=== PATIENT | female | born 1960 | race Caucasian/White ===

== ENCOUNTER 2019-11-18 11:00 | Outpatient (REF) | payer MEDICARE, MEDICAID, SELFPAY ==
--- NOTE | 2019-11-18 | XR_ITS ---
EXAMINATION: XR CHEST CLINICAL INFORMATION: Simple chronic bronchitis COMPARISON: None TECHNIQUE: 2 views of the chest were obtained. FINDINGS: The cardiac and mediastinal contours are normal. The lungs are clear. There is no pleural effusion or pneumothorax. There are degenerative changes of the thoracic spine. There is evidence of surgery to the cervical spine. IMPRESSION: No evidence for acute disease in the chest.
== END 2019-11-18 11:01 | disposition home or self-care (01) ==
LOC: CF 11:00
PROVIDERS: PCP Pediatrics; Visit Provider Hospitalist
DX: J41.0 Simple chronic bronchitis (principal)
CPT/HCPCS: 71046; 90471; 90732; 99211

== ENCOUNTER → 2019-11-21 07:44 | Outpatient (REF) | payer MEDICARE, MEDICAID, SELFPAY ==
--- NOTE | 2019-11-21 07:55 | NM_ITS ---
EXAMINATION: RADIONUCLIDE SOLID FOOD GASTRIC EMPTYING 4-HOUR STUDY CLINICAL INFORMATION: GERD without esophagitis, abdominal pain. COMPARISON: No previous gastric emptying study is available for comparison. TECHNIQUE: A standard meal consisting of 4 oz of Egg Beaters brand equivalent tagged with 650 microcuries Tc-99m Sulfur Colloid, 8 oz water and 2 slices of toast with jelly was administered orally to the patient. Images were obtained using a dual head gamma camera in the anterior and posterior projections over of the stomach immediately post ingestion and at hourly intervals up to 4 hours post ingestion. The anterior and posterior counts at each time interval were averaged using the geometric mean and expressed as percentage of the immediate post ingestion counts. FINDINGS: There is good visualization of activity in the stomach immediately post ingestion. As the study progresses, there is good clearance of activity from the stomach and visualization of progressively increasing small bowel activity. By the end of the study, there is almost no retention noted in the stomach. Retention in the stomach at each time interval was: 1 hour 78% (normal 37%-90%) 2 hours 30% (normal 30%-60%) 3 hours 14% 4 hours 5% (normal 0%-10%) IMPRESSION: Normal 4-hour solid food gastric emptying study.
== END ==
LOC: HO.NUCMED 07:44
PROVIDERS: PCP Pediatrics; Visit Provider Nurse Practitioner
DX: R10.84 Generalized abdominal pain (principal); K21.9 Gastro-esophageal reflux disease without esophagitis
CPT/HCPCS: 78264; A9541

== ENCOUNTER → 2019-12-02 09:23 | Outpatient (BNVA) | payer MEDICARE, MEDICAID, SELFPAY | PROVIDERS: Visit Provider Obstetrics & Gynecology | DX: N95.0 Postmenopausal bleeding (principal) | CPT/HCPCS: 99213 ==

== ENCOUNTER 2019-12-27 09:17 | Day surgery (SDC) | payer MEDICARE, MEDICAID, SELFPAY ==
--- NOTE | 2019-12-27 11:04 | MHC.SHP ---
Pre-Procedural Eval Section B Chief Complaint: ABDOMINAL PAIN Relevant Social History: None Present Medications: see Short Stay Collaborative assessment Medical History: Significant History (asthma, GERD, depression, DM, NEAL,) History of Previous Operations: Relevant previous surgery/procedure and date(s) (c section, thyroidectomy) Allergies: Allergies Allergy/AdvReac Type Severity Reaction Status Date / Time aspirin [Aspirin] Allergy Unknown SWELLING Unverified 12/02/19 09:23 ENVIROMENTAL Allergy Unknown ASTHMA Uncoded 12/02/19 09:23 FLARE UP Review of Systems Sugical H&P ROS: Negative: Constitution, Cardiovascular, Respiratory, Neurological, Psychiatric, Hem-Onc, Allergic/Immunologic, Gastrointestinal, Genitourinary, Musculoskeletal, Integumentary, Endocrine and Eyes/Ears/Nose/Throat Exam Surgical H&P Exam: Normal: HEENT, Normal: Heart, Normal: Lungs, Normal: Extremities, Normal: Abdomen, Normal: Skin and Normal: Neurological Plan Diagnosis/Plan: Unchanged Patient has been examined and remains a candidate for the planned procedure
[2019-12-27 11:09] VITALS: BP 147/69; PULSE 82; RESP 16; TEMP 36.9; O2SAT 97; BMI 39.0
--- NOTE | 2019-12-27 11:29 | P.CONAN_ITS ---
[facility] Past Medical History Medical History Allergic rhinitis Asthma Depression Diabetes Diverticulosis Fibromyalgia GERD (gastroesophageal reflux disease) HTN (hypertension) Hypothyroidism Obesity Palpitations Family History Family History Maternal Aunt Cervical cancer Surgical History Surgical History H/O laminectomy H/O thyroidectomy H/O tubal ligation History of History of surgery on arm Social History Social History Are you a primary home care manager to a significant other at home: No Do you presently have visiting nurse or other home services: No Alcohol intake: never Smoking Status: Former smoker Use of substances other than those prescribed or required for medical reasons: No Advance Directives: No Advance Directives Information Provided: No (n/a) Advance Directives on File: No Recently lost weight without trying: No Sexual orientation: Straight/Heterosexual Gender identity: female Meds Allergies Allergy/AdvReac Type Severity Reaction Status Date / Time aspirin [Aspirin] Allergy Unknown SWELLING Verified 12/27/19 11:26 ENVIROMENTAL Allergy Unknown ASTHMA Uncoded 12/27/19 11:26 FLARE UP Home Medications Medication Instructions Recorded Confirmed Type albuterol sulfate 90 mcg/actuation 2 puff INHALATION QID PRN 12/02/19 History aerosol inhaler atorvastatin 20 mg tablet 20 mg PO DAILY 12/02/19 History clonazepam 1 mg tablet 1 mg PO DAILY PRN 12/02/19 History ergocalciferol (vitamin D2) 1,250 1,250 mcg PO QWEEK 12/02/19 History mcg (50,000 unit) capsule fluocinolone 0.01 % scalp oil and ea TOPICAL 12/02/19 History shower cap fluticasone propionate 230 INHALATION 12/02/19 History mcg-salmeterol 21 mcg/actuation HFA inhaler ketoconazole 2 % shampoo TOPICAL 12/02/19 History levothyroxine 150 mcg tablet 150 mcg PO DAILY 12/02/19 History lisinopril 20 mg tablet 20 mg PO DAILY 12/02/19 History loratadine 10 mg tablet 10 mg PO DAILY 12/02/19 History metformin 500 mg tablet 500 mg PO BID 12/02/19 History metformin 500 mg tablet,extended 500 mg PO DAILY 12/02/19 History release 24 hr metronidazole 0.75 % vaginal gel 1 appful VAGINAL BEDTIME 12/02/19 History montelukast 10 mg tablet 10 mg PO BEDTIME 12/02/19 History nystatin 100,000 unit/gram topical TOPICAL BID PRN 12/02/19 History cream oxycodone-acetaminophen 7.5 mg-325 1 tab PO BID PRN 12/02/19 History mg tablet pantoprazole 40 mg tablet,delayed 40 mg PO BEDTIME 12/02/19 History release umeclidinium 62.5 mcg/actuation INHALATION 12/02/19 History blister powder for inhalation Exam Exam Date and Time: December 27, 2019 1129 Height,Weight and Vital Signs: Height 5 ft 3 in Weight 100 kg Last Vital Signs Temp 98.4 F 12/27/19 11:09 Pulse 82 12/27/19 11:09 Resp 16 12/27/19 11:09 BP 147/69 H 12/27/19 11:09 Pulse Ox 97 12/27/19 11:09 Airway Mallampati Class: II TM Dist: >3cm Neck ROM: Full Assessment and Plan Assessment Anesthesia Assessment: Anesthesia Plan Discussed and Chart Reviewed Final Anesthetic Review NPO: Yes ASA Class: III Final Preanesthetic Review: No Changes in Pt Med Stat, Meds/Allgs Chart Reviewed, Consent Obtained/Reviewed and Anes Risks/Benef Reviewed Patient Risk: Intermediate Procedure Risk: Low Assessment/Block/Sedation in SS: Assess/Block/Sedation-SS Anesthetic Plan Anesthetic Plan: MAC: Disposition: Standard PACU
--- NOTE | 2019-12-27 11:47 | PM.OP ---
Brief Operative Note Date of Service: 12/27/19 Pre-op diagnosis: Nausea, early satiety Post-op diagnosis: same Procedure: see op note Surgeon: Vi Gonzalez MD Anesthesia: MAC Estimated blood loss (mL): 0 Condition: stable Disposition: PACU
--- NOTE | 2019-12-27 11:47 | W.PM.OPN ---
Operative Note Operative Note Date of Service: 12/27/19 Narrative: Procedure Description: EGD FLEXIBLE TRANSORAL UPPER GASTROINTESTINAL ENDOSCOPY UPPER ENDOSCOPY Consent: Indications for the procedure and potential complications of bleeding, perforation, reaction to medications and missed diagnosis were discussed with the patient and informed consent was obtained. Instrument: Olympus GIF H 190 J mid size upper endoscope Monitoring: Vital signs and clinical assessment, continuous EKG monitoring, Pulse oximetry, Carbon Dioxide monitoring and blood pressure monitoring were done throughout the procedure. Procedure: The patient was placed in the left lateral decubitis position and pre-procedure medications were administered and a bite block was placed. The endoscope was inserted into the mouth and advanced under direct vision to the third part of duodenum. A careful inspection was made as the upper endoscope was withdrawn including a retroflexed examination of the proximal stomach; Findings and interventions are described below. Findings: Larynx:normal Esophagus: GE junction at 38 cm, diaphragm hiatus at 38 cm, no varices or esophagitis. Stomach: Patchy gastric erythema yong at antrum. Biopsies were obtained. Grade 2 flap valve on retroflexed examination of the cardia. THERE was also a paucity of gastric movement, Duodenum: Normal bulb and descending duodenum, Intervention: Biopsies as noted above Impression/Findings: gastritis PLAN: await path, if h pylori pos then treat if neg then gastric emptying study given her hx
[2019-12-27 11:55] VITALS: BP 156/69; PULSE 86; RESP 16; TEMP 36.1; O2SAT 100
[2019-12-27 12:10] VITALS: BP 147/73; PULSE 76; RESP 14; O2SAT 96
[2019-12-27 12:25] VITALS: BP 140/67; PULSE 69; RESP 17; TEMP 36.3; O2SAT 96
[2019-12-27 13:05] VITALS: BP 132/61; PULSE 80; RESP 20; O2SAT 98
== END 2019-12-27 13:47 | disposition home or self-care (01) ==
PROVIDERS: PCP Pediatrics; Visit Provider Internal Medicine Gastroenterology
PROC: 0DJ08ZZ Inspection of Upper Intestinal Tract, Via Natural or Artificial Opening Endoscopic (ICD-10-PCS; CPT 43235; principal; 2019-12-27 10:30)
DX: K29.50 Unspecified chronic gastritis without bleeding (principal); K44.9 Diaphragmatic hernia without obstruction or gangrene; K21.9 Gastro-esophageal reflux disease without esophagitis; J45.909 Unspecified asthma, uncomplicated; E11.9 Type 2 diabetes mellitus without complications; G47.33 Obstructive sleep apnea (adult) (pediatric); Z79.51 Long term (current) use of inhaled steroids; Z79.84 Long term (current) use of oral hypoglycemic drugs; Z79.899 Other long term (current) drug therapy; Z88.8 Allergy status to other drugs, medicaments and biological substances; Z90.49 Acquired absence of other specified parts of digestive tract; Z87.891 Personal history of nicotine dependence
CPT/HCPCS: 43239; 88305; 88342

== ENCOUNTER → 2020-01-21 11:46 | Outpatient (BNVA) | payer MEDICARE, MEDICAID, SELFPAY | PROVIDERS: PCP Pediatrics; Referring Provider Pediatrics; Visit Provider Nurse Practitioner | DX: K59.04 Chronic idiopathic constipation (principal); R10.84 Generalized abdominal pain; R14.0 Abdominal distension (gaseous); R10.9 Unspecified abdominal pain | CPT/HCPCS: Q3014 ==

== ENCOUNTER 2020-02-03 10:59 | Outpatient (REF) | payer MEDICARE, MEDICAID, SELFPAY ==
[2020-02-04 09:47] LABS: BV Int Neg Control Negative (Negative); BV Int Pos Control Positive (Positive)
[2020-02-06 03:52] LABS: N. gonorrhoeae RNA TMA NOT DETECTED (NOT DETECTED)
[2020-02-06 15:25] LABS: C. trachomatis RNA TMA NOT DETECTED (NOT DETECTED)
== END 2020-02-03 11:00 | disposition home or self-care (01) ==
LOC: HO.LAB 10:59
PROVIDERS: PCP Pediatrics; Visit Provider Obstetrics & Gynecology
DX: R10.9 Unspecified abdominal pain (principal)
CPT/HCPCS: 81003; 87480; 87491; 87510; 87591; 87660; 99212

== ENCOUNTER 2020-05-04 11:01 | Outpatient (REF) | payer MEDICARE, MEDICAID, SELFPAY ==
--- NOTE | ~2020-05-04 | US_ITS ---
EXAMINATION: ULTRASOUND PELVIS COMPLETE XR CHEST CLINICAL INFORMATION: Pelvic and perineal pain. COMPARISON: None TECHNIQUE: Transabdominal and transvaginal imaging of pelvis is performed. FINDINGS: PELVIS: The uterus is anteverted and anteflexed measuring 8.9 cm in length, 3.7 cm in AP and 4.8 cm in transverse dimension. The endometrial thickness is 0.8 cm. There are small nabothian simple cyst in the cervix. An echogenic focus is seen in the lower uterine segment, likely calcification. The right ovary is not visualized. The left ovary measures 2.0 x 1.2 x 1.8 cm on transabdominal ultrasound. There is no free fluid in cul-de-sac. CHEST X-RAY: The lungs are well-expanded and clear. The heart size and pulmonary vascularity is normal. No gross bony abnormality seen. US/US pelvic complete IMPRESSION: 1. Small nabothian cysts in the cervix. 2. The uterus is unremarkable except for a small echogenic focus measuring 0.9 cm likely echogenic debris or calcification. 3. Unremarkable chest exam.
--- NOTE | ~2020-05-04 | US_ITS ---
EXAMINATION: ULTRASOUND PELVIS COMPLETE XR CHEST CLINICAL INFORMATION: Pelvic and perineal pain. COMPARISON: None TECHNIQUE: Transabdominal and transvaginal imaging of pelvis is performed. FINDINGS: PELVIS: The uterus is anteverted and anteflexed measuring 8.9 cm in length, 3.7 cm in AP and 4.8 cm in transverse dimension. The endometrial thickness is 0.8 cm. There are small nabothian simple cyst in the cervix. An echogenic focus is seen in the lower uterine segment, likely calcification. The right ovary is not visualized. The left ovary measures 2.0 x 1.2 x 1.8 cm on transabdominal ultrasound. There is no free fluid in cul-de-sac. CHEST X-RAY: The lungs are well-expanded and clear. The heart size and pulmonary vascularity is normal. No gross bony abnormality seen. US/US transvaginal IMPRESSION: 1. Small nabothian cysts in the cervix. 2. The uterus is unremarkable except for a small echogenic focus measuring 0.9 cm likely echogenic debris or calcification. 3. Unremarkable chest exam.
--- NOTE | 2020-05-04 13:44 | ECG_ITS ---
Test Reason : CHR COPD Blood Pressure : / mmHG Vent. Rate : 082 BPM Atrial Rate : 082 BPM P-R Int : 166 ms QRS Dur : 074 ms QT Int : 400 ms P-R-T Axes : 055 020 055 degrees QTc Int : 467 ms Normal sinus rhythm Possible Left atrial enlargement Borderline ECG When compared with ECG of 16-APR-2015 02:22, T wave inversion no longer evident in Anterior leads Referred By: Gabo Silveira Electronically Signed By:AL DOMÍNGUEZ
[2020-05-04 14:48] LABS: MANUAL DIFF FLAG NO
[2020-05-04 14:53] LABS: Basophils Percent Auto 0.3 % (0-2); Eosinophils Absolute Auto 0.1 X10*3/uL (0.0-0.4); Eosinophils Percent Auto 1.5 % (0-4); Hematocrit 43.8 % (37-47); Hemoglobin 14.6 g/dl (12.0-16.0); Imm Gran Abs Auto 0.04 X10*3/uL (0.00-0.03); Imm Gran Pct Auto 0.5 % (0.0-0.4); Lymphocytes Absolute Auto 2.1 X10*3/uL (1.2-4.9); Lymphocytes Percent Auto 24.1 % (20-40); Mean Corpuscular HGB Conc 33.3 g/dl (31.0-35.0); Mean Corpuscular Volume 89.9 fL (80-98); Mean Platelet Volume 10.6 fL (9.4-12.3); Monocytes Absolute Auto 0.5 X10*3/uL (0.1-1.2); Monocytes Percent Auto 5.3 % (2-11); Neutrophils Percent Auto 68.3 % (45-73); Platelet Count 252 X10*3/uL (160-400); Red Blood Count 4.87 X10*6/uL (4.20-5.50); Red Cell Distribution Width 13.5 % (11.0-16.0); White Blood Count 8.8 X10*3/uL (4.8-10.8)
[2020-05-04 15:21] LABS: Anion Gap 14 (12-20); Blood Urea Nitrogen 15 mg/dL (9-16); Carbon Dioxide 24 mmol/L (22-29); Chloride 102 mmol/L (96-108); Estimated Glomerular Filt Rate > 60; Glucose Random 171 mg/dL (60-115); Potassium 3.9 mmol/L (3.3-5.1); Sodium 136 mmol/L (135-145)
[2020-05-04 15:25] LABS: B Type Natriuretic Peptide 11 pg/mL (<100); Troponin-I High Sensitivity < 3.5 ng/L (<3.5-17.0)
[2020-05-04 15:51] LABS: Erythrocyte Sedimentation Rate 13 MM/HR (0-20)
[2020-05-05 11:12] LABS: Immunoglobulin E 177 kU/L (<OR=114)
== END 2020-05-04 11:02 | disposition home or self-care (01) ==
LOC: HO.US 11:01
PROVIDERS: Absent Provider Hospitalist; PCP Pediatrics; Visit Provider Obstetrics & Gynecology
DX: R10.2 Pelvic and perineal pain (principal); J44.9 Chronic obstructive pulmonary disease, unspecified; R07.9 Chest pain, unspecified; G47.33 Obstructive sleep apnea (adult) (pediatric); J45.40 Moderate persistent asthma, uncomplicated; Z79.899 Other long term (current) drug therapy
CPT/HCPCS: 36415; 71046; 76830; 76856; 80048; 82550; 82785; 83880; 84484; 85025; 85652; 93005; 99212

== ENCOUNTER → 2020-05-11 10:04 | Outpatient (BNVA) | payer MEDICARE, MEDICAID, SELFPAY | PROVIDERS: PCP Pediatrics; Visit Provider Obstetrics & Gynecology | DX: Z13.89 Encounter for screening for other disorder (principal) | CPT/HCPCS: Q3014 ==

== ENCOUNTER 2020-05-20 13:50 | Outpatient (REF) | payer MEDICARE, MEDICAID, SELFPAY ==
--- NOTE | ~2020-05-20 | MM_ITS ---
EXAMINATION: MM DIAGNOSTIC DIGITAL BREAST TOMOSYNTHESIS, BILATERAL CLINICAL INFORMATION: Due for yearly exam. Status post excision intraductal papilloma left breast 04/25/2019. Follow-up probable small cyst lateral left breast noted on prior imaging for pain and burning anterior breast. The lifetime risk of breast cancer based on the Tyrer-Cuzick Model is 12%. COMPARISON: Mammography: 10/31/2019, 03/29/2019, 03/22/2019, 01/10/2018; targeted ultrasound left breast 10/31/2019, ultrasound-guided needle localization 04/25/2019. TECHNIQUE: Digital breast tomosynthesis is performed in both the craniocaudal and mediolateral oblique views along with computer-aided detection (CAD). Synthesized 2D images are generated from the tomosynthesis. FINDINGS: There are scattered areas of fibroglandular density (ACR BI-RADS breast composition Category b). There are minor postsurgical changes anterior left breast. Neither breast shows interval mass or architectural abnormality or developing density. Small circumscribed nodule outer left breast is stable from 10/31/2019 and 03/22/2019. Again, there are some scattered bilateral round and mildly coarse calcifications. No significant changes. No interval skin thickening or coarsening of the Christopher's ligaments. Results are provided to the patient at time of visit by the technologist. MM/MM tomosynthesis diagnostic BI IMPRESSION: 1. No mammographic evidence of malignancy. 2. Stable postsurgical changes anterior left breast. Small stable cyst outer left breast. ASSESSMENT: BI-RADS 2: Benign RECOMMENDATION: Routine annual mammography screening. This patient's information was entered into a reminder system with a target due date for their next mammogram.
== END 2020-05-20 13:51 | disposition home or self-care (01) ==
LOC: HO.MAMMO 13:50
PROVIDERS: Visit Provider Surgery
DX: N60.02 Solitary cyst of left breast (principal)
CPT/HCPCS: 77062; 77066

== ENCOUNTER → 2020-05-21 10:58 | Outpatient (BNVA) | payer MEDICARE, MEDICAID, SELFPAY | PROVIDERS: PCP Pediatrics; Visit Provider Internal Medicine Cardiovascular Disease | DX: K59.04 Chronic idiopathic constipation (principal); R10.84 Generalized abdominal pain; R14.0 Abdominal distension (gaseous); R10.9 Unspecified abdominal pain; R07.2 Precordial pain | CPT/HCPCS: 99202; 99212 ==

== ENCOUNTER → 2020-06-29 10:06 | Outpatient (BNVA) | payer MEDICARE, MEDICAID, SELFPAY | PROVIDERS: PCP Pediatrics; Visit Provider Hospitalist | DX: G47.33 Obstructive sleep apnea (adult) (pediatric) (principal); J45.41 Moderate persistent asthma with (acute) exacerbation; J30.9 Allergic rhinitis, unspecified; Z99.89 Dependence on other enabling machines and devices | CPT/HCPCS: 99212 ==

== ENCOUNTER → 2020-07-03 10:00 | Outpatient (REF) | payer MEDICARE, MEDICAID, SELFPAY ==
--- NOTE | ~2020-07-03 | NM_ITS ---
Myocardial perfusion study Indication: The cardial chest pain to evaluate for myocardial ischemia Technique: The patient was brought in for a Lexiscan perfusion study on 07/03/2020. Patient performed low-level exercise and was injected 0.4 mg of Lexiscan intravenously. Within a minute of injection, 30 mCi of sestamibi was given intravenously. Images were obtained using the SPECT gamma camera interlaced with the gating device. Images were obtained in supine position. Resting perfusion study was performed on 07/07/2020. Patient was administered 30 mCi of sestamibi intravenously at rest. Images were then obtained in supine position. Images obtained with and without CT attenuation. Total DLP 110 mGy-cm. Images were processed with the software and compared side to side in short axis, horizontal long axis and vertical long axis views. Findings: The stress perfusion study showed non attenuated images show minimally reduced uptake in the apex of the LV myocardium. Attenuation corrected images show normal uptake of radiotracer in all segments of LV myocardium. The gated study shows normal LV systolic function with calculated LVEF of 65%. LV cavity is normal in size. The gated study shows normal systolic wall thickening and contraction of segments. Resting study shows non attenuated images show moderately reduced uptake in the apex of the LV myocardium. Attenuation corrected images show normal uptake of radiotracer in all segments of LV myocardium. Gating at rest reveals normal systolic wall motion with ejection fraction at 67%. The findings are consistent with normal myocardial perfusion. NM/NM valentín perf SPECT rest & str Impression: 1. Myocardial perfusion imaging study shows normal myocardial perfusion 2. Gated LVEF is 65% 3. Transient ischemic dilatation not present EKG is nondiagnostic for ischemia
--- NOTE | 2020-07-03 10:03 | CA_ITS ---
Acquisition Time: 2020-07-03 11:11:15 Total Exercise Time: 00:02:00 Test Indications: CHEST PAIN Medications: Protocol: LEXISCAN Max HR: 109 BPM 67% of Pred: 162 BPM Max BP: 130/080 mmHG Max Work Load: 1.0 METS Pharmacological stress t est using Lexiscan while sitting. Pt tolerated well, mild SOB after Lexiscan injection, (pt has hx of asthma) pt used her own rescue inhalor with good effect. Denies any CP. EKG with no arrhythmias, non-diagnostic for ischemia. Nuclear images to follow. Normotensive response to test. Test reviewed with Dr. Inman. Referred By: Dave Mckeon Overread By: Malissa Hobbs NP
== END ==
LOC: HO.CARD 10:00
PROVIDERS: Visit Provider Internal Medicine Cardiovascular Disease
DX: R07.2 Precordial pain (principal)
CPT/HCPCS: 78452; 93016; 93017; 93018; A9500; J0280; J2785

== ENCOUNTER → 2020-08-19 09:32 | Outpatient (BNVA) | payer MEDICARE, MEDICAID, SELFPAY | PROVIDERS: PCP Pediatrics; Visit Provider Hospitalist | DX: J40 Bronchitis, not specified as acute or chronic (principal); J30.9 Allergic rhinitis, unspecified; J45.41 Moderate persistent asthma with (acute) exacerbation; G47.33 Obstructive sleep apnea (adult) (pediatric); Z99.89 Dependence on other enabling machines and devices | CPT/HCPCS: 96372; 99212; J2930 ==

== ENCOUNTER → 2020-09-02 10:08 | Outpatient (BNVA) | payer MEDICARE, MEDICAID, SELFPAY | PROVIDERS: PCP Pediatrics; Visit Provider Hospitalist | DX: J45.51 Severe persistent asthma with (acute) exacerbation (principal); J30.9 Allergic rhinitis, unspecified; G47.33 Obstructive sleep apnea (adult) (pediatric); Z99.89 Dependence on other enabling machines and devices | CPT/HCPCS: 99212 ==

== ENCOUNTER → 2020-09-25 14:03 | Outpatient (BNVA) | payer MEDICARE, MEDICAID, SELFPAY | PROVIDERS: PCP Pediatrics; Visit Provider Nurse Practitioner | DX: R10.9 Unspecified abdominal pain (principal); K21.9 Gastro-esophageal reflux disease without esophagitis; R14.0 Abdominal distension (gaseous) | CPT/HCPCS: Q3014 ==

== ENCOUNTER → 2020-10-02 10:39 | Outpatient (BNVA) | payer MEDICARE, MEDICAID, SELFPAY | PROVIDERS: PCP Pediatrics; Visit Provider Hospitalist | DX: J45.51 Severe persistent asthma with (acute) exacerbation (principal); J30.9 Allergic rhinitis, unspecified; G47.33 Obstructive sleep apnea (adult) (pediatric); Z99.89 Dependence on other enabling machines and devices | CPT/HCPCS: 99212 ==

== ENCOUNTER → 2020-10-05 14:46 | Outpatient (BNVA) | payer MEDICARE, MEDICAID, SELFPAY | PROVIDERS: PCP Pediatrics; Visit Provider Internal Medicine Cardiovascular Disease | DX: R07.2 Precordial pain (principal); R60.9 Edema, unspecified | CPT/HCPCS: 93005; 99212 ==

== ENCOUNTER → 2020-10-13 11:36 | Outpatient (BNVA) | payer MEDICARE, MEDICAID, SELFPAY | PROVIDERS: PCP Pediatrics; Referring Provider Pediatrics; Visit Provider Surgery | DX: N60.02 Solitary cyst of left breast (principal) | CPT/HCPCS: 99212 ==

== ENCOUNTER → 2020-10-26 11:04 | Outpatient (BNVA) | payer MEDICARE, MEDICAID, SELFPAY | PROVIDERS: PCP Pediatrics; Referring Provider Pediatrics; Visit Provider Nurse Practitioner | DX: K21.9 Gastro-esophageal reflux disease without esophagitis (principal); R10.9 Unspecified abdominal pain; R14.0 Abdominal distension (gaseous) | CPT/HCPCS: 99212 ==

== ENCOUNTER → 2020-10-29 09:50 | Outpatient (BNVA) | payer MEDICARE, MEDICAID, SELFPAY | PROVIDERS: PCP Pediatrics; Visit Provider Obstetrics & Gynecology ==

== ENCOUNTER → 2020-11-05 10:47 | Outpatient (BNVA) | payer MEDICARE, MEDICAID, SELFPAY | PROVIDERS: PCP Pediatrics; Visit Provider Hospitalist | DX: J45.41 Moderate persistent asthma with (acute) exacerbation (principal); J30.9 Allergic rhinitis, unspecified; G47.33 Obstructive sleep apnea (adult) (pediatric); Z99.89 Dependence on other enabling machines and devices | CPT/HCPCS: 99212 ==

== ENCOUNTER 2021-03-02 12:54 | Outpatient (REF) | payer MEDICARE, MEDICAID, SELFPAY ==
[2021-03-02 13:49] LABS: Binax Internal Control QC Valid; Binax Now Covid-19 Ag Negative (Negative)
== END 2021-03-02 12:55 | disposition home or self-care (01) ==
LOC: HO.LAB 12:54
PROVIDERS: Visit Provider Hospitalist
DX: Z13.89 Encounter for screening for other disorder (principal)

== ENCOUNTER → 2021-04-29 10:53 | Outpatient (BNVA) | payer MEDICARE, MEDICAID, SELFPAY | PROVIDERS: PCP Pediatrics; Visit Provider Hospitalist | DX: J45.51 Severe persistent asthma with (acute) exacerbation (principal); J30.9 Allergic rhinitis, unspecified; G47.33 Obstructive sleep apnea (adult) (pediatric); Z99.89 Dependence on other enabling machines and devices | CPT/HCPCS: 99212 ==

== ENCOUNTER 2021-05-26 11:19 | Outpatient (REF) | payer MEDICARE, MEDICAID, SELFPAY ==
--- NOTE | ~2021-05-26 | MM_ITS ---
EXAMINATION: MM SCREENING DIGITAL BREAST TOMOSYNTHESIS, BILATERAL CLINICAL INFORMATION: Screening. Asymptomatic. Prior excision intraductal papilloma left breast 04/25/2019. The lifetime risk of breast cancer based on the Tyrer-Cuzick Model is 15%. COMPARISON: Mammography: 05/20/2020, 10/31/2019, 03/29/2019, 03/22/2019, 01/10/2018, 11/14/2016 TECHNIQUE: Digital breast tomosynthesis is performed in both the craniocaudal and mediolateral oblique views along with computer-aided detection (CAD). Synthesized 2D images are generated from the tomosynthesis. Additional right MLO view is provided. FINDINGS: There are scattered areas of fibroglandular density (ACR BI-RADS breast composition Category b). Post surgical changes anterior periareolar left breast are similar to recent exams. Neither breast shows interval mass or architectural abnormality or abnormal calcifications. There is no developing density. The axilla are unremarkable. MM/MM tomosynthesis screening BI IMPRESSION: -No mammographic evidence of malignancy. -Postsurgical changes anterior left breast. ASSESSMENT: BI-RADS 2: Benign RECOMMENDATION: Routine annual mammography screening. This patient's information was entered into a reminder system with a target due date for their next mammogram.
== END 2021-05-26 11:20 | disposition home or self-care (01) ==
LOC: HO.MAMMO 11:19
PROVIDERS: PCP Pediatrics; Visit Provider Pediatrics
DX: Z12.31 Encounter for screening mammogram for malignant neoplasm of breast (principal)
CPT/HCPCS: 77063; 77067

== ENCOUNTER 2021-08-17 18:09 | Emergency (ER) | payer MEDICARE, MEDICAID, SELFPAY ==
--- NOTE | ~2021-08-17 | XR_ITS ---
EXAMINATION: XR CHEST CLINICAL INFORMATION: Chest pain COMPARISON: 05/04/20 TECHNIQUE: Frontal view of the chest was obtained. FINDINGS: The mediastinum, ehsan, and vasculature are within normal limits. No pneumonia or majors and atelectasis. No pleural fluid or pneumothorax. Some asymmetric sclerosis associated with the right first costotransverse junction. Proliferative changes around the right glenohumeral joint and evidence of lower cervical instrumentation. Slight asymmetry near the first costotransverse junction on the right appears similar to thoracic spine frontal view 06/09/16 XR/XR chest 1V IMPRESSION: No pneumonia or edema.
[2021-08-17 18:52] VITALS: BMI 35.4
--- NOTE | 2021-08-17 18:53 | ECG_ITS ---
Test Reason : CP Blood Pressure : / mmHG Vent. Rate : 083 BPM Atrial Rate : 083 BPM P-R Int : 158 ms QRS Dur : 078 ms QT Int : 378 ms P-R-T Axes : 044 017 009 degrees QTc Int : 444 ms Normal sinus rhythm Possible Left atrial enlargement Nonspecific T wave abnormality Abnormal ECG When compared with ECG of 04-MAY-2020 14:00, Nonspecific T wave abnormality now evident in Inferior leads Referred By: Generic ED Physician Electronically Signed By:Dave Mckeon
[2021-08-17 19:10] LABS: Hematocrit 41.6 % (37.0-47.0); Hemoglobin 13.5 g/dl (12.0-16.0); Mean Corpuscular HGB Conc 32.5 g/dl (31.0-35.0); Mean Corpuscular Hemoglobin 29.7 pg (27.0-33.0); Mean Corpuscular Volume 91.6 fL (80.0-98.0); Mean Platelet Volume 10.5 fL (9.4-12.3); Platelet Count 227 X10*3/uL (160-400); Red Blood Count 4.54 X10*6/uL (4.20-5.50); Red Cell Distribution Width 13.9 % (11.0-16.0); White Blood Count 9.5 X10*3/uL (4.8-10.8)
[2021-08-17 19:19] LABS: Anion Gap 11 (12-20); Blood Urea Nitrogen 11 mg/dL (9-16); Calcium 9.1 mg/dL (8.4-10.2); Carbon Dioxide 28 mmol/L (22-29); Chloride 104 mmol/L (96-108); Creatinine Clr Calc Pharmacy 68.9; Estimated Glomerular Filt Rate > 60; Glucose Random 170 mg/dL (60-115); Potassium 4.2 mmol/L (3.3-5.1); Sodium 139 mmol/L (135-145)
[2021-08-17 19:26] LABS: Troponin-I High Sensitivity < 3.5 ng/L (<3.5-17.0)
[2021-08-17 20:19] VITALS: BP 173/72; PULSE 75; RESP 18; TEMP 36.6; O2SAT 97; BMI 37.3
== END 2021-08-17 22:53 | disposition left against medical advice (07) ==
PROVIDERS: Emergency Provider Emergency Medicine
DX: R07.89 Other chest pain (principal); M62.81 Muscle weakness (generalized); Z79.899 Other long term (current) drug therapy
CPT/HCPCS: 36415; 71045; 80048; 84484; 85027; 93005; 99282; 99283

== ENCOUNTER → 2022-02-01 10:38 | Outpatient (BNVA) | payer MEDICARE, MEDICAID, SELFPAY | PROVIDERS: PCP Pediatrics; Visit Provider Hospitalist | DX: J45.51 Severe persistent asthma with (acute) exacerbation (principal); G47.33 Obstructive sleep apnea (adult) (pediatric); J30.9 Allergic rhinitis, unspecified; Z99.89 Dependence on other enabling machines and devices | CPT/HCPCS: 99212 ==

== ENCOUNTER → 2022-04-21 13:11 | Outpatient (BNVA) | payer MEDICARE, MEDICAID, SELFPAY | PROVIDERS: PCP Pediatrics; Visit Provider Advanced Practice Midwife ==

== ENCOUNTER 2022-08-02 11:53 | Outpatient (REF) | payer MEDICARE, MEDICAID, SELFPAY ==
--- NOTE | ~2022-08-02 | MM_ITS ---
EXAMINATION: MM SCREENING DIGITAL BREAST TOMOSYNTHESIS, BILATERAL CLINICAL INFORMATION: Screening. Asymptomatic. Left lumpectomy 04/25/2019 (intraductal papilloma without atypia). The lifetime risk of breast cancer based on the Tyrer-Cuzick Model is 10%. COMPARISON: Mammography: 05/26/2021, 05/20/2020, 10/31/2019, 03/29/2019, 03/22/2019 TECHNIQUE: Digital breast tomosynthesis is performed in both the craniocaudal and mediolateral oblique views along with computer-aided detection (CAD). Synthesized 2D images are generated from the tomosynthesis. Additional left MLO view is provided. FINDINGS: There are scattered areas of fibroglandular density (ACR BI-RADS breast composition Category b). There are no significant masses, abnormal calcifications, or other abnormalities. No developing density or interval architectural abnormality. There are minor post surgical changes again seen on the left similar to prior exam. The axilla are unremarkable. MM/MM tomosynthesis screening BI IMPRESSION: No mammographic evidence of malignancy. ASSESSMENT: BI-RADS 2: Benign RECOMMENDATION: Routine annual mammography screening. This patient's information was entered into a reminder system with a target due date for their next mammogram.
== END 2022-08-02 11:54 | disposition home or self-care (01) ==
LOC: HO.MAMMO 11:53
PROVIDERS: PCP Pediatrics; Visit Provider Pediatrics
DX: Z12.31 Encounter for screening mammogram for malignant neoplasm of breast (principal)
CPT/HCPCS: 77063; 77067

== ENCOUNTER → 2022-08-08 15:28 | Outpatient (BNVA) | payer MEDICARE, MEDICAID, SELFPAY | PROVIDERS: PCP Pediatrics; Visit Provider Hospitalist | DX: J45.51 Severe persistent asthma with (acute) exacerbation (principal); J30.9 Allergic rhinitis, unspecified; G47.33 Obstructive sleep apnea (adult) (pediatric); Z79.899 Other long term (current) drug therapy; Z99.89 Dependence on other enabling machines and devices | CPT/HCPCS: 99212 ==

== ENCOUNTER 2022-11-03 10:36 | Outpatient (REF) | payer MEDICARE, MEDICAID, SELFPAY ==
[2022-11-03 15:13] LABS: Magnesium 2.1 mg/dL (1.6-2.6)
[2022-11-03 15:20] LABS: TSH reflex Free T4 1.91 uIU/mL (0.32-4.0); Vitamin D 25-OH Total 24.4 ng/mL (>30)
[2022-11-03 15:38] LABS: Folate 7.6 ng/mL (> or = 4.0); Vitamin B12 380 pg/mL (200-900)
== END 2022-11-03 10:37 | disposition home or self-care (01) ==
LOC: HO.CHCLDS 10:36
PROVIDERS: Visit Provider Pediatrics
DX: E11.22 Type 2 diabetes mellitus with diabetic chronic kidney disease (principal); G62.9 Polyneuropathy, unspecified; N18.32 Chronic kidney disease, stage 3b
CPT/HCPCS: 36415; 82306; 82607; 82746; 83735; 84443

== ENCOUNTER 2023-04-18 14:11 | Outpatient (AMB) | payer MEDICARE, MEDICAID, SELFPAY ==
[2023-04-18 14:21] VITALS: BP 140/68; PULSE 85; BMI 31.2
--- NOTE | 2023-04-18 14:21 | A.OFFVIS_ITS ---
Intake Vital Signs 04/18/23 14:21 Height 5 ft 3 in Weight 176 lb BMI 31.2 BP 140/68 H Blood Pressure Location Lt brachial Position Sitting Pulse 85 Pulse Source Monitor Intake Visit Reasons: chest pain Intake Note: chest pain and SOB Multiskill Operator Required: Yes Multiskill Operator Name: JAN Carbone [id number] Allergies aspirin [Aspirin] Allergy (Intermediate, Verified 08/08/22 15:37) SWELLING ENVIROMENTAL Allergy (Severe, Uncoded 08/08/22 15:37) ASTHMA FLARE UP HPI HPI Comments History of Present Illness Details 62-year-old female presents today for a visit to discuss chest pain. She had last seen Dr Mike sanders in 2020 for a similar feeling. She reports full body burning but mostly by the heart. Happens at rest. She also reports SOB with ambulation and some left sided chest stabbing. States it has been happening for 1 month. She lad a pharmacological stress test 06/2020 which showed normal myocardial perfusion. [facility] Medical History Shortness of breath on exertion Chronic allergic rhinitis NEAL on CPAP Generalized abdominal pain Chronic idiopathic constipation Diabetes Allergic rhinitis Fibromyalgia GERD (gastroesophageal reflux disease) Diverticulosis HTN (hypertension) Depression Obesity Hypothyroidism Palpitations Asthma Surgical History Hx of breast surgery History of esophagogastroduodenoscopy (EGD) H/O tubal ligation H/O thyroidectomy History of surgery on arm H/O laminectomy History of Family History Maternal Aunt Cervical cancer Father Stomach cancer Diabetes HTN (hypertension) Mother Diabetes HTN (hypertension) Social History Household Members: None Housing: Apartment Are you a primary primary care nurse practitioner to a significant other at home: No Do you presently have visiting nurse or other home services: No Alcohol intake: never Patient Tobacco Use Status: Current someday Tobacco user Tobacco use type: Cigarette Years Smoked: 10 years Current occupational status: disabled Sexual orientation: Straight/Heterosexual Gender identity: Female Female Reproductive History Menstrual Age of Menarche: 13 Review of Systems Const Denies weakness ENT Denies dizziness Card Denies chest pain, Denies chest pain with activity, Denies syncope, Denies rapid heart rate, Denies pedal edema, Denies edema, Denies leg edema, Denies lightheadedness, Denies palpitations, Denies dyspnea, Denies dyspnea on exertion and Denies orthopnea Resp Denies cough, Denies dyspnea and Denies dyspnea on exertion GI Denies hematochezia and Denies change in stool character Musc Denies abnormal gait, Denies muscle cramps, Denies muscle weakness, Denies numbness, Denies radiating pain into limb and Denies tingling Neuro Denies abnormal gait, Denies dizziness, Denies syncope, Denies numbness, Denies tingling and Denies weakness Endo Denies palpitations Physical Exam Vital Signs: Last Vital Signs Pulse 85 04/18/23 14:21 BP 140/68 H 04/18/23 14:21 BMI result Body Mass Index 31.2 Const General: healthy appearing and no acute distress Orientation/consciousness: patient oriented x3 HEENT Head: Yes normal to inspection Eyes General: appearance normal, both eyes and all related structures Neck Neck: Yes normal visual inspection Chest Chest palpation & inspection: normal inspection of the chest Resp Effort & Inspection: normal respiratory effort Auscultation: clear to auscultation bilaterally Cardio Jugular venous distension: no JVD Palpation: normal PMI Rate: regular rate Rhythm: regular rhythm Heart sounds: S1 normal heart sound present, S2 normal heart sound present, no click, no gallops, no murmurs and no rubs GI Inspection: Yes normal to inspection Palpation (GI): Soft to palpation Skin General skin exam: no rashes or lesions noted Neuro General: patient oriented x3 Extrem General: Yes normal to inspection Psych Appearance: grossly normal Office Procedures EKG Details: EKG today. Normal Sinus Rhythm. Rate 85bpm. Possible left atrial enlargement. Low voltage QRS. Borderline EKG. QRS 70ms. QTc 449ms. SD 144ms. No significant changes from prior. [id number], Complete Assessment & Plan Assessment & Plan (1) Chest pain: Comment: 59-year-old female with risk factors for coronary artery disease and atypical chest pain. The chest pain is sharp and at times burning sensation the left- sided chest. She is not very active physically due to fibromyalgia. She underwent Lexiscan which was normal. Code(s): R07.9 - Chest pain, unspecified Qualifiers: Chest pain type: precordial pain Qualified Code(s): R07.2 - Precordial pain (2) Shortness of breath on exertion: Code(s): R06.02 - Shortness of breath Plan pharmacological stress test shows normal perfusion. No recent echocardiogram. Will obtain for baseline and to assess for valve changes, wall motion, and ejection fraction. She continue to report chest discomforts at rest and shortness of breath when she gets up with little activity that been ongoing for 1 month. She is not very active due to having fibromyalgia. Has multiple risk factors for CAD: diabetes, hypertension, and obesity. EKG shows no changes. Orders: Orders CA lexiscan stress w valentín 04/18/23 R06.02 - Shortness of breath, R07.9 - Chest pain, unspecified NM cardiolite stress test 04/18/23 R06.02 - Shortness of breath, R07.9 - Chest pain, unspecified CA echo transthoracic complete 04/18/23 R06.02 - Shortness of breath, R07.9 - Chest pain, unspecified Coding Level of Care Code Est Pt Level 3 (64844) Diagnoses Precordial pain R07.2 Chest pain type: precordial pain Shortness of breath on exertion R06.02 CPT Codes EKG - CPT: [id number], Complete ([id number])
== END 2023-04-18 14:58 | disposition home or self-care (01) ==
PROVIDERS: PCP Pediatrics; Visit Provider Nurse Practitioner
DX: R07.2 Precordial pain (principal); R06.02 Shortness of breath
CPT/HCPCS: 93010; 99213

== ENCOUNTER → 2023-04-18 14:11 | Outpatient (BNVA) | payer MEDICARE, MEDICAID, SELFPAY | PROVIDERS: PCP Pediatrics; Visit Provider Nurse Practitioner | DX: R07.2 Precordial pain (principal); R06.02 Shortness of breath | CPT/HCPCS: 93005; 99212 ==

== ENCOUNTER 2023-04-19 10:36 | Outpatient (AMB) | payer MEDICARE, MEDICAID, SELFPAY ==
[2023-04-19 10:44] VITALS: BP 134/68; PULSE 75; O2SAT 97; BMI 30.1
--- NOTE | 2023-04-19 10:44 | A.OFFVIS_ITS ---
Intake Vital Signs 04/19/23 10:44 Height 5 ft 3 in Weight 170 lb BMI 30.1 BP 134/68 Blood Pressure Location Lt brachial Position Sitting Pulse 75 Pulse Source Pulse Oximeter Pulse Oximetry (%) 97 Oxygen Delivery Method Room Air Intake Visit Reasons: Shortness of breath/Cough Clay Artist Required: Yes Clay Artist Name: Yi #[id number], [id number] Information Interpreted: non-clinical & clinical Stopping Builder: Stopping Builder offered & declined Accompanied by: Self / Same As Patient Allergies aspirin [Aspirin] Allergy (Intermediate, Verified 04/19/23 10:50) SWELLING ENVIROMENTAL Allergy (Severe, Uncoded 04/19/23 10:50) ASTHMA FLARE UP Medication List - Last Reconciled 04/19/23 by Lizz Burns, HARIKA albuterol sulfate 90 mcg/actuation (Ventolin HFA) 2 puffs inhalation QID PRN atorvastatin 20 mg PO DAILY budesonide 0.5 mg (2 mL) inhalation DAILY 30 days cetirizine (Zyrtec) 10 mg PO DAILY 30 days clonazepam 1 mg PO DAILY PRN dicyclomine 20 mg PO QID duloxetine 60 mg PO DAILY famotidine (Pepcid) 40 mg PO BEDTIME 30 days Flovent HFA 110 mcg/actuation (fluticasone propionate) 2 puffs inhalation BID NS glycopyrrolate-formoterol 9-4.8 mcg (Bevespi Aerosphere) 2 puffs inhalation Q12H imipramine HCl 50 mg (2 x 25 mg) PO BEDTIME 30 days ipratropium-albuterol 0.5 mg-3 mg(2.5 mg base)/3 mL 3 mL inhalation BID 30 days ketoconazole 2% topical levothyroxine 150 mcg PO DAILY lisinopril 30 mg PO DAILY nebulizers As directed nystatin topical BID PRN oxycodone-acetaminophen 7.5-325 mg 1 tab PO BID PRN Oxygen Home Use As directed pantoprazole 40 mg PO BEDTIME semaglutide (Ozempic) mg subcut simethicone 180 mg PO TID HPI Shortness of breath/Cough HPI Details Kristin is a pleasant 62 year old female, former smoker, with underlying asthma, NEAL on CPAP and chronic allergic rhinitis. At baseline, she is moderately controlled on Flovent, Bevespi, albuterol MDI and duoneb. She was trialed on xolair and dupixent in the past with suboptimal response. Today she presents for an acute visit. She reports productive cough with green sputum, increased dyspnea and wheezing for the last three weeks. She has been using her albuterol and nebulizer multiple times per day with minimal relief. She denies any fever, chills or sick contacts. [facility] Medical History Shortness of breath on exertion Chronic allergic rhinitis NEAL on CPAP Generalized abdominal pain Chronic idiopathic constipation Diabetes Allergic rhinitis Fibromyalgia GERD (gastroesophageal reflux disease) Diverticulosis HTN (hypertension) Depression Obesity Hypothyroidism Palpitations Asthma Surgical History Hx of breast surgery History of esophagogastroduodenoscopy (EGD) H/O tubal ligation H/O thyroidectomy History of surgery on arm H/O laminectomy History of Family History Maternal Aunt Cervical cancer Father Stomach cancer Diabetes HTN (hypertension) Mother Diabetes HTN (hypertension) Social History (Updated 04/19/23 @ 10:53 by Lizz Burns LPN) Household Members: None Housing: Apartment Are you a primary neonatal intensive care nurse to a significant other at home: No Do you presently have visiting nurse or other home services: No Alcohol intake: never Patient Tobacco Use Status: Former Tobacco user Tobacco use type: Cigarette Years Smoked: 10 years Current occupational status: disabled Sexual orientation: Straight/Heterosexual Gender identity: Female Female Reproductive History Menstrual Age of Menarche: 13 Review of Systems Const Denies chills, Denies excessive sweating, Denies fever(s) and Denies night sweats Eyes Denies dry eyes, Denies irritation and Denies itchy eyes ENT Reports Normal hearing present, Denies nasal congestion, Denies nasal discharge, Denies post nasal drip and Denies sore throat Card Denies chest pain, Denies chest pain at rest, Denies chest pain with activity, Denies claudication, Denies leg edema, Denies dyspnea, Denies orthopnea and Denies paroxysmal nocturnal dyspnea Resp Denies excessive phlegm production, Denies pain on inspiration, Denies pain with cough, Denies dyspnea and Denies stridor Musc Denies myalgias Neuro Reports Normal hearing present Endo Denies excessive sweating Saul/Lymph Denies lymphadenopathy Aller/Immun Denies itchy eyes and Denies seasonal rhinorrhea Physical Exam Vital Signs: Last Vital Signs Pulse 75 04/19/23 10:44 BP 134/68 04/19/23 10:44 Pulse Ox 97 04/19/23 10:44 Oxygen Delivery Method Room Air 04/19/23 10:44 BMI result Body Mass Index 30.1 Const General: cooperative, comfortable, no acute distress, well developed and alert Orientation/consciousness: patient oriented x3 Limitations: no limitations HEENT Head: Yes normal to inspection, Yes normocephalic and Yes atraumatic Ears: hearing grossly normal bilaterally and external ears normal Eyes General: appearance normal, both eyes and all related structures Eyelids: Yes eyelids normal Sclerae: sclerae normal EOM: EOMs intact bilaterally Neck Neck: Yes normal visual inspection and Yes no lymphadenopathy Lymphatic: no lymphadenopathy noted Chest Chest palpation & inspection: normal inspection of the chest Resp Other: expiratory wheezes throughout Effort & Inspection: able to speak in complete sentences, no audible wheezes, no stridor, not tachypneic, no tripod positioning and no use of accessory muscles Cardio Jugular venous distension: no JVD Rate: regular rate Rhythm: regular rhythm Skin Other: warm, dry General skin exam: no rashes or lesions noted Neuro General: patient oriented x3 Cranial nerves: Yes Normal hearing present Cognition (Neuro): normal cognition Gait exam (Neuro): Normal gait present Extrem General: Yes normal to inspection, Yes capillary refill normal, Yes no clubbing, cyanosis or edema and Yes no pedal edema Psych Appearance: grossly normal and well kempt Speech and movement: Normal speech and movement present and Clear speech present Affect: normal affect Attitude: cooperative Thought process: Normal thought process present Thought content: Normal thought content present Insight: Good insight present (Psych) Judgement: Good judgement present (Psych) Assessment & Plan Assessment & Plan (1) Asthma: Code(s): J45.909 - Unspecified asthma, uncomplicated Qualifiers: Asthma severity: severe Asthma persistence: persistent Asthma complication type: with acute exacerbation Qualified Code(s): J45.51 - Severe persistent asthma with (acute) exacerbation (2) Chronic allergic rhinitis: Code(s): J30.9 - Allergic rhinitis, unspecified (3) NEAL on CPAP: Code(s): G47.33 - Obstructive sleep apnea (adult) (pediatric); Z99.89 - Dependence on other enabling machines and devices Plan Will treat bronchitic symptoms with azithromycin and prednisone for wheezing. Patient is aware if symptoms do not improve to call the office. Will consider CXR at that time, given length of symptoms. All questions were answered and patient is in agreement of plan. Will follow-up for regularly scheduled appointment Dr. Silveira in May, or sooner if needed Medications: New azithromycin For 250 mg dose pack: take 500 mg today (day 1), then 250 mg for 4 days (days 2-5) PO 6 tabs 0RF prednisone 40 mg (2 x 20 mg) PO DAILY 10 tabs 0RF Coding Level of Care Code Est Pt Level 4 (11889) Diagnoses Severe persistent asthma with acute exacerbation J45.51 Asthma severity: severe Asthma persistence: persistent Asthma complication type: with acute exacerbation Chronic allergic rhinitis J30.9 NEAL on CPAP G47.33; Z99.89
== END 2023-04-19 11:22 | disposition home or self-care (01) ==
PROVIDERS: PCP Pediatrics; Visit Provider Nurse Practitioner Family
DX: J45.51 Severe persistent asthma with (acute) exacerbation (principal); J30.9 Allergic rhinitis, unspecified; G47.33 Obstructive sleep apnea (adult) (pediatric); Z99.89 Dependence on other enabling machines and devices
CPT/HCPCS: 99214

== ENCOUNTER → 2023-04-19 10:36 | Outpatient (BNVA) | payer MEDICARE, MEDICAID, SELFPAY | PROVIDERS: PCP Pediatrics; Visit Provider Nurse Practitioner Family | DX: J45.51 Severe persistent asthma with (acute) exacerbation (principal); J30.9 Allergic rhinitis, unspecified; G47.33 Obstructive sleep apnea (adult) (pediatric); Z99.89 Dependence on other enabling machines and devices | CPT/HCPCS: 99212 ==

== ENCOUNTER → 2023-05-23 08:33 | Outpatient (REF) | payer MEDICARE, MEDICAID, SELFPAY ==
--- NOTE | ~2023-05-23 | NM_ITS ---
Myocardial perfusion study Indication: Shortness of breath evaluate for myocardial ischemia Technique: The patient was brought in for a Lexiscan perfusion study on 05/23/2023. Patient performed low-level exercise and was injected 0.4 mg of Lexiscan intravenously. Within a minute of injection, 25 mCi of sestamibi was given intravenously. Images were obtained using the SPECT gamma camera interlaced with the gating device. Images were obtained in supine position. Resting perfusion study was performed on 05/30/2023. Patient was administered 25 mCi of sestamibi intravenously at rest. Images were then obtained in supine position. Images obtained with and without CT attenuation. Total DLP 133 mGy-cm. Images were processed with the software and compared side to side in short axis, horizontal long axis and vertical long axis views. Findings: The stress perfusion study showed both attenuated as well as non attenuated corrected images show normal uptake of radiotracer in all segments of LV myocardium.. The gated study shows normal LV systolic function with calculated LVEF of 51%. LV cavity is normal in size. The gated study shows normal systolic wall thickening and contraction of segments. Resting study shows both attenuated as well as non attenuated corrected images show mildly reduced uptake in the apex of the LV myocardium. Gating at rest reveals normal systolic wall motion with ejection fraction at 56%. The findings are consistent with normal myocardial perfusion. NM/NM cardiolite stress test Impression: 1. Myocardial perfusion imaging study shows normal myocardial perfusion 2. Gated LVEF is 56% 3. Transient ischemic dilatation not present EKG is nondiagnostic for ischemia
--- NOTE | 2023-05-23 08:37 | CA_ITS ---
Acquisition Time: 2023-05-23 09:58:36 Total Exercise Time: 00:02:00 Test Indications: CP, SOB Medications: SEE H Protocol: LEXISCAN Max HR: 118 BPM 74% of Pred: 159 BPM Max BP: 128/078 mmHG Max Work Load: 1.0 METS Pharmacological stress test with Lexiscan injection while sitting and kicking her legs, without anginal symptoms, without arrhythmias, with normtoesnive response to injeciton, with nondiagnoisitic EKGs. Aminophylline 75mg IVP given to reverse Lexiscan. Nuclear images pending. Test reviewed with Dr. Mckeon. Referred By: Ammy Shaw Overread By: Ammy Shaw
--- NOTE | 2023-05-23 08:37 | CA_ITS ---
Transthoracic Echocardiogram Patient (Last, First, Middle): Kristin Conteh, Gender: Female Date of : 1960 Age: 62 Procedure Date: 05/23/2023 Procedure Type: Transthoracic Echocardiogram Location: OP Height: 160.02 cm Weight: 73.03 kg BSA: 1.76 m2 Heart Rate: bpm BP: 114 / 64 mmHg Auto Body Repairer: OFELIA Referring MD: Ammy Shaw NP Trailer Tank Truck Driver: Ralf Inman MD Symptoms: R06.02 - Shortness of breath Study Quality: Adequate with contrast ECG Rhythm: Sinus Conclusions: - Normal study Findings Procedure Information Contrast agent, definity, is being given per protocol without apparent complications. Left Ventricle Normal left ventricular size, thickness, and systolic function. The visually estimated ejection fraction is between 65-70%. Spectral Doppler is indicative of a normal filling pattern. Right Ventricle Normal right ventricular cavity size and systolic function. Atria Both atria are normal in size. There is no evidence of interatrial shunt. Aortic Valve Normal aortic valve structure and function. There is no aortic valve stenosis. There is no aortic valve regurgitation. Mitral Valve Normal mitral valve structure and function. There is trace mitral valve regurgitation. There is no mitral valve stenosis. Pulmonic Valve The pulmonic valve is normal. Tricuspid Valve There is trace tricuspid valve regurgitation. The right ventricular systolic pressure is normal. Normal right atrial pressure. There is no evidence of pulmonary hypertension. Great Vessels The pulmonary artery was not well visualized. There is no dilatation of the ascending aorta measuring 3.10 cm. Venous The inferior vena cava is normal in size and collapses greater than 50% with inspiration. Pericardium/Pleural There is no evidence of pericardial effusion. Measurements 2D Linear Measurements IVSd: 1.02 0.6-0.9/0.6-1.0 cm LVIDd: 4.33 3.9-5.3/4.2-5.9 cm LVIDd Index: 2.46 2.4-3.2/2.2-3.1 cm/m2 LVIDs: 2.85 2.0-3.6 cm LVPWd: 0.95 0.7-1.1 cm LA Diam: 3.60 2.7-3.8/3.0-4.0 cm LAIDs Index: 2.05 1.5-2.3 cm/m2 LV Mass: 175.37 67-162/88-224 g LV Mass Index: 99.64 43-95/49-115 g/m2 LVOT Diam: 1.90 3.0+(-)1.3 cm 2D Systolic Function EF 4C: 62.00 >55% EF 2C: 72.70 >55% EF BiP: 67.90 >55% Mitral Valve MV Pk E: 0.97 MV PK A: 0.85 MV Decel Time: 198.00 E/A: 1.10 E'Lateral: 6.74 E'Medial: 6.20 E/E' Med: 15.70 E/E' Lat: 14.40 PHT: 58.00 MVA PHT: 3.79 Decel Yolo: 4.91 Aortic Valve AoV Pk Mejia: 1.22 AoV Mn Mejia: 0.80 AoV VTI: 0.27 AoV Pk Grad: 6.00 Aov Mn Grad: 3.00 DAVID Cont.VTI: 2.11 LVOT LVOT Pk Mejia: 0.84 LVOT Mn Mejia: 0.52 LVOT VTI: 0.20 LVOT Pk Grad: 3.00 LVOT Mn Grad: 1.00 LVOT Diam: 1.90 LVOT Area: 2.84 Diastolic Function MV Pk E: 0.97 MV Pk A: 0.85 E/A: 1.10 E'Medial: 6.20 E/E' Med: 15.70 E' Laterial: 6.74 E/E' Lat: 14.40 Right Ventricle TAPSE (mm): 20.80 TVS' Mejia: 11.10 Tricuspid Valve RA Press: 3.00 Great Vessels Aorta Sinus of Valsalva: 2.96 2.0-3.[address] Ridge: 2.02 1.7-3.4 cm Ao Asc: 3.10 2.1-3.4 cm Updated in Other Vendor System with Status of Final Ralf Inman MD electronically signed on 05/24/2023 3:14:33 PM with status of Final
== END ==
LOC: HO.CARD 08:33
PROVIDERS: PCP Pediatrics; Visit Provider Nurse Practitioner
DX: R07.9 Chest pain, unspecified (principal); R06.02 Shortness of breath
CPT/HCPCS: 78452; 93017; 93306; A9500; J0280; J2785; Q9957

== ENCOUNTER → 2023-05-23 08:37 | Outpatient (BNV) | payer MEDICARE, MEDICAID, SELFPAY | PROVIDERS: PCP Pediatrics; Visit Provider Nurse Practitioner | DX: R07.9 Chest pain, unspecified (principal); R06.02 Shortness of breath | CPT/HCPCS: 78452; 93016; 93018; 93320; 93350; 93352; 93356 ==

== ENCOUNTER 2023-06-01 13:11 | Outpatient (AMB) | payer MEDICARE, MEDICAID, SELFPAY ==
[2023-06-01 13:16] VITALS: BP 116/68; PULSE 86; O2SAT 98; BMI 29.7
--- NOTE | 2023-06-01 13:16 | A.OFFVIS_ITS ---
Vital Signs 06/01/23 13:16 Height 5 ft 3 in Weight 167 lb 8.821 oz BMI 29.7 BP 116/68 Blood Pressure Location Lt brachial Position Sitting Pulse 86 Pulse Source Pulse Oximeter Pulse Oximetry (%) 98 Oxygen Delivery Method Room Air Intake Visit Reasons: 7 wk f/up Intake Note: 7 week follow up pt feels good just some sob Child Support Specialist Required: Yes Child Support Specialist Name: JAN [id number] Allergies aspirin [Aspirin] Allergy (Intermediate, Verified 04/19/23 10:50) SWELLING ENVIROMENTAL Allergy (Severe, Uncoded 04/19/23 10:50) ASTHMA FLARE UP HPI Comments Details: 62-year-old female presents today for a visit to discuss chest pain. She had last seen Dr Mike sanders in 2020 for a similar feeling. She reports full body burning but mostly on the left side of her chest. She lad a pharmacological stress test 06/2020 which showed normal myocardial perfusion and was reperformed to assess her heart. She has a history of NEAL, asthma, and fribromyalgia. [facility] Medical History Shortness of breath on exertion Chronic allergic rhinitis NEAL on CPAP Generalized abdominal pain Chronic idiopathic constipation Diabetes Allergic rhinitis Fibromyalgia GERD (gastroesophageal reflux disease) Diverticulosis HTN (hypertension) Depression Obesity Hypothyroidism Palpitations Asthma Surgical History Hx of breast surgery History of esophagogastroduodenoscopy (EGD) H/O tubal ligation H/O thyroidectomy History of surgery on arm H/O laminectomy History of Family History Maternal Aunt Cervical cancer Father Stomach cancer Diabetes HTN (hypertension) Mother Diabetes HTN (hypertension) Social History (Updated 04/19/23 @ 10:53 by Lizz Burns LPN) Household Members: None Housing: Apartment Are you a primary cna caregiver to a significant other at home: No Do you presently have visiting nurse or other home services: No Alcohol intake: never Patient Tobacco Use Status: Former Tobacco user Tobacco use type: Cigarette Years Smoked: 10 years Current occupational status: disabled Sexual orientation: Straight/Heterosexual Gender identity: Female Female Reproductive History Menstrual Age of Menarche: 13 Review of Systems Const Denies weakness ENT Denies dizziness Card Denies chest pain, Denies chest pain with activity, Denies syncope, Denies rapid heart rate, Denies pedal edema, Denies edema, Denies leg edema, Denies lightheadedness, Denies palpitations, Denies dyspnea, Denies dyspnea on exertion and Denies orthopnea Resp Denies cough, Denies dyspnea and Denies dyspnea on exertion GI Denies hematochezia and Denies change in stool character Musc Denies abnormal gait, Denies muscle cramps, Denies muscle weakness, Denies numbness, Denies radiating pain into limb and Denies tingling Neuro Denies abnormal gait, Denies dizziness, Denies syncope, Denies numbness, Denies tingling and Denies weakness Endo Denies palpitations Physical Exam Vital Signs: Last Vital Signs Pulse 86 06/01/23 13:16 BP 116/68 06/01/23 13:16 Pulse Ox 98 06/01/23 13:16 Oxygen Delivery Method Room Air 06/01/23 13:16 BMI result Body Mass Index 29.7 Const General: healthy appearing and no acute distress Orientation/consciousness: patient oriented x3 HEENT Head: Yes normal to inspection Eyes General: appearance normal, both eyes and all related structures Neck Neck: Yes normal visual inspection Chest Chest palpation & inspection: normal inspection of the chest Resp Effort & Inspection: normal respiratory effort Auscultation: clear to auscultation bilaterally Cardio Jugular venous distension: no JVD Palpation: normal PMI Rate: regular rate Rhythm: regular rhythm Heart sounds: S1 normal heart sound present, S2 normal heart sound present, no click, no gallops, no murmurs and no rubs GI Inspection: Yes normal to inspection Palpation (GI): Soft to palpation Skin General skin exam: no rashes or lesions noted Neuro General: patient oriented x3 Extrem General: Yes normal to inspection Psych Appearance: grossly normal Assessment & Plan Assessment & Plan (1) Chest pain: Comment: 59-year-old female with risk factors for coronary artery disease and atypical chest pain. The chest pain is sharp and at times burning sensation the left- sided chest. She is not very active physically due to fibromyalgia. She underwent Lexiscan which was normal. Code(s): R07.9 - Chest pain, unspecified Category: Medical Qualifiers: Chest pain type: precordial pain Qualified Code(s): R07.2 - Precordial pain Plan She has been complaining of atypical chest burning. She underwent Lexiscan which shows shows normal myocardial perfusion
== END 2023-06-01 13:39 | disposition home or self-care (01) ==
PROVIDERS: PCP Pediatrics; Visit Provider Nurse Practitioner
DX: R07.2 Precordial pain (principal)
CPT/HCPCS: 99213

== ENCOUNTER → 2023-06-01 13:11 | Outpatient (BNVA) | payer MEDICARE, MEDICAID, SELFPAY | PROVIDERS: PCP Pediatrics; Visit Provider Nurse Practitioner | DX: R07.2 Precordial pain (principal) | CPT/HCPCS: 99212 ==

== ENCOUNTER 2023-06-06 14:29 | Outpatient (AMB) | payer MEDICARE, MEDICAID, SELFPAY ==
[2023-06-06 14:56] VITALS: BP 110/70; BMI 29.6
--- NOTE | 2023-06-06 14:56 | A.OFFVIS_ITS ---
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 She is doing well with no concerns. Attempting to eat a healthy diet and lost weight with meds, and stays active with limited with her fibromyalgia exercise. Currently not sexually active w/partner. Denies any vaginal dryness or irritation. STI testing offered; she declines. Last pap smear; 2019. Last mammogram; 2022. Colonoscopy is UTD. Denies any family history of breast or ovarian, FH colon cancer. [facility] Medical History Shortness of breath on exertion Chronic allergic rhinitis NEAL on CPAP Generalized abdominal pain Chronic idiopathic constipation Diabetes Allergic rhinitis Fibromyalgia GERD (gastroesophageal reflux disease) Diverticulosis HTN (hypertension) Depression Obesity Hypothyroidism Palpitations Asthma Surgical History Hx of breast surgery History of esophagogastroduodenoscopy (EGD) H/O tubal ligation H/O thyroidectomy History of surgery on arm H/O laminectomy History of Family History Maternal Aunt Cervical cancer Father Stomach cancer Diabetes HTN (hypertension) Mother Diabetes HTN (hypertension) Paternal Uncle Colon cancer Paternal Aunt Lung cancer Social History Household Members: None Housing: Apartment Are you a primary hearing care professional to a significant other at home: No Do you presently have visiting nurse or other home services: No Alcohol intake: never Patient Tobacco Use Status: Former Tobacco user Tobacco use type: Cigarette Years Smoked: 10 years Current occupational status: disabled Sexually active: Yes Sexual orientation: Straight/Heterosexual Gender identity: Female Female Reproductive History Menstrual Age of Menarche: 13 Menopause type: natural Total pregnancies: 3 Full term: 3 Number of Living Children: 3 Date of last pap smear: 10/29/19 Date of Mammogram: 08/02/22 Review of Systems Const All systems reviewed & are unremarkable except as noted in HPI and below Reports as per HPI Eyes Reports no additional complaints ENT Reports no additional complaints Card Reports no additional complaints Resp Reports no additional complaints GI Reports as per HPI and Reports no additional complaints Reports as per HPI Musc Reports no additional complaints Skin/Breast Reports as per HPI Neuro Reports no additional complaints Psych Reports no additional complaints Endo Reports no additional complaints Saul/Lymph Reports no additional complaints Aller/Immun Reports no additional complaints Physical Exam Vital Signs: Last Vital Signs BP 110/70 06/06/23 14:56 BMI result Body Mass Index 29.6 Const General: cooperative, healthy appearing, no acute distress, well developed and alert Orientation/consciousness: patient oriented x3 HEENT Head: Yes normal to inspection Eyes General: appearance normal, both eyes and all related structures Neck Neck: Yes normal visual inspection Thyroid: Thyroid normal Chest Chest palpation & inspection: normal inspection of the chest and other (no puckering, dimpling, peau de orange, retraction, discharge, masses) Breast/axilla inspection: normal inspection of the breasts Breast/axilla palpation: normal palpation of the breasts Resp Effort & Inspection: normal respiratory effort GI Inspection: Yes normal to inspection Palpation (GI): Soft to palpation Rectal Exam - Female: deferred General: Yes bladder normal to palpation External Female Exam: normal external appearance and normal appearance of the urethra Speculum Exam - Vagina: normal appearance of the vagina, normal palpation and normal vaginal discharge Speculum Exam - Cervix: normal appearance of the cervix and normal palpation Bimanual exam- vagina & uterus: normal bimanual exam, normal palpation, uterine size normal, bladder normal to palpation, normal palpation and non-tender Bimanual Exam- Adnexa, other: no masses Skin General skin exam: no rashes or lesions noted Rashes: no rashes Neuro General: patient oriented x3 Cognition (Neuro): normal cognition Extrem General: Yes normal to inspection Psych Attitude: cooperative Thought process: Normal thought process present Assessment & Plan Assessment & Plan (1) Encounter for well woman exam with routine gynecological exam: Code(s): Z01.419 - Encounter for gynecological examination (general) (routine) without abnormal findings Plan Discussed: Current recommendations for pap smears per ASCCP guidelines. Breast awareness, periodic self breast exams and yearly mammogram. Maintain a healthy lifestyle, well balanced diet including Calcium 1,200 mg and Vitamin D 600 IU daily, and routine exercise. Contact the office with any postmenopausal bleeding. Patient verbalizes understanding and agrees to the plan of care. She was given opportunity to ask questions and all questions were answered to the best of my ability. RTO in 1 year for annual rn obgyn exam. This note is constructed using voice recognition software. While every effort has been made to ensure accuracy, sales order processor errors may have been included. Coding Level of Care Code Est Pt Prev Care 40-64y(85239) Diagnoses Encounter for well woman exam with routine gynecological exam Z01.419
== END 2023-06-06 15:41 | disposition home or self-care (01) ==
LOC: HO.HWS 14:29
PROVIDERS: PCP Pediatrics; Visit Provider Advanced Practice Midwife
DX: Z91.89 Other specified personal risk factors, not elsewhere classified (principal)
CPT/HCPCS: G0101

== ENCOUNTER → 2023-06-06 14:29 | Outpatient (BNVA) | payer MEDICARE, MEDICAID, SELFPAY | PROVIDERS: PCP Pediatrics; Visit Provider Advanced Practice Midwife ==

== ENCOUNTER 2023-06-09 10:36 | Outpatient (AMB) | payer MEDICARE, MEDICAID, SELFPAY ==
[2023-06-09 10:42] VITALS: PULSE 79; O2SAT 98; BMI 29.3
--- NOTE | 2023-06-09 10:42 | A.OFFVIS_ITS ---
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 The CPAP therapy continues to be affecting beneficial. She uses the CPAP for more than 4 hours a night. She was supposed to use oxygen supplementation along with her CPAP, but, she stopped using it and to see if she really needed or not. She does feel groggy in drowsy in the morning in her [place] score still elevated at 02/05. Her primary care doctor did find a murmur and she is scheduled to have a echocardiogram. There is also a question of pulmonary hypertension with limb swelling. I will follow up with the results of her ECHO. 02/01/2022 the patient is here for a pulmonary follow-up visit. She has been having hard time with her fibromyalgia is having significant amount of pain. She almost did not make it to the appointment. But, she has also been having difficulties with her CPAP in therefore she had to get that evaluated. She did bring it in. She feels that she is getting a lot of water in condensation in the tubing that is bothering her while she is sleeping. She is also having issues with a dry mouth. Probably asked why humidification was further increased. The machine is very old. She did bring it in. This is her 1st machine is probably around 7 or 8 years old. And appears to be in poor condition. Therefore, I do believe that a replacement machine is warranted at this time. She does have nasal pillows. She does not want to use a fullface mask even if her dryness in her mouth will improve. Therefore provided her with a different type of chinstrap I am hoping that this will not worsen little better. When she does use it her AHI is below 5. Her average pressure is 10 because the ient continues use her inhalers.machine is set up a CPAP of 10. Will change that to an APAP 6 to 12. I also decreased her she humidity from 8 to 3. I am also requesting the heated tubing to see if we can also improve her condensation with the temperature adjustment. From an asthma standpoint the patient If responding to the current respiratory regimen. Therefore will continue it at this time. 08/08/2022 the patient is here for pulmonary follow-up visit. Overall the patient is feeling better. The patient has asthma symptoms have improved specially with all significant weight loss that she has had. She continues her respiratory medicine. Has not required any prednisone which is reassuring. In addition to that she is using her CPAP. CPAP therapy continues to be affecting beneficial. She does try to use more than 4 hours a night. The patient did get a new CPAP and she is trying to get used to it. She feels like is too strong at times. I did download the machine since she brought in and her average pressure was 6 which is reassuring. Her AHI was actually 0. I do believe that she does not need high pressures for her Pap therapy. Therefore I switched her to a CPAP of 7 cm she can try that. If she feels like is too strong we can always many down to 6 cm. But I do believe that because the weight loss she does not need as much pressure settings. Ultimately if the patient feels starts feeling better altogether we can always consider repeating the sleep study in the future when she loses additional weight. 06/09/2023 the patient is here for a pulmonary follow-up visit. She has been struggling because of significant weight loss. The patient also has not been able to tolerate her CPAP pressures because now she does not feel like she needs such a high level. We had decrease it down to the lowest pressure during the last visit. She can bring it in during the next visit so we can further adjusted maybe we can bring it down further if possible. If the patient is still has a hard time tolerating her CPAP we can also consider repeating sleep study in case she no longer needs CPAP any longer. From an asthma standpoint she has been struggling. She did require a visit with our pulmonary office for a sick visit and she was given antibiotics and prednisone. She did feel better after that. She is now back at her baseline. Will continue to optimize her respiratory therapy at this time. She will be swtiched from [facility] to [facility]. [facility] Medical History Shortness of breath on exertion Chronic allergic rhinitis NEAL on CPAP Generalized abdominal pain Chronic idiopathic constipation Diabetes Allergic rhinitis Fibromyalgia GERD (gastroesophageal reflux disease) Diverticulosis HTN (hypertension) Depression Obesity Hypothyroidism Palpitations Asthma Surgical History Hx of breast surgery History of esophagogastroduodenoscopy (EGD) H/O tubal ligation H/O thyroidectomy History of surgery on arm H/O laminectomy History of Family History Maternal Aunt Cervical cancer Father Stomach cancer Diabetes HTN (hypertension) Mother Diabetes HTN (hypertension) Paternal Uncle Colon cancer Paternal Aunt Lung cancer Social History Household Members: None Housing: Apartment Are you a primary disabilities caregiver to a significant other at home: No Do you presently have visiting nurse or other home services: No Alcohol intake: never Patient Tobacco Use Status: Former Tobacco user Tobacco use type: Cigarette Years Smoked: 10 years Current occupational status: disabled Sexual orientation: Straight/Heterosexual Gender identity: Female Female Reproductive History Menstrual Age of Menarche: 13 Review of Systems Const Reports daytime sleepiness, Reports difficulty sleeping and Denies night sweats ENT Denies change in voice, Denies lip swelling, Denies mouth pain, Reports nasal congestion, Reports nasal discharge, Reports neck pain and Denies tongue swelling Card Reports chest pain and Reports dyspnea on exertion Resp Reports cough, Reports dyspnea on exertion and Reports wheezing GI Denies abdominal pain Musc Reports back pain, Reports myalgias, Reports arthralgias, Reports joint swelling, Reports limited range of motion and Reports neck pain Neuro Denies Neuro-related abnormal movements Psych Denies no additional complaints Saul/Lymph Denies easy bleeding and Denies lymphadenopathy Aller/Immun Denies lip swelling, Denies tongue swelling and Reports wheezing Physical Exam Vital Signs: Last Vital Signs Pulse 79 06/09/23 10:42 Pulse Ox 98 06/09/23 10:42 Oxygen Delivery Method Room Air 06/09/23 10:42 BMI result Body Mass Index 29.3 Const General: alert Neck Neck: Yes normal visual inspection, Yes full ROM and Yes no lymphadenopathy Chest Chest palpation & inspection: normal inspection of the chest Resp Auscultation: no wheezes and diminished lung sounds Cardio Rate: regular rate Rhythm: regular rhythm Heart sounds: S1 normal heart sound present and S2 normal heart sound present GI Palpation (GI): Soft to palpation and nontender Auscultation: normal bowel sounds Skin General skin exam: rashes and/or lesions noted Assessment & Plan Assessment & Plan (1) Asthma: Code(s): J45.909 - Unspecified asthma, uncomplicated Category: Medical Qualifiers: Asthma complication type: with acute exacerbation Asthma persistence: persistent Asthma severity: severe Qualified Code(s): J45.51 - Severe persistent asthma with (acute) exacerbation (2) Chronic allergic rhinitis: Code(s): J30.9 - Allergic rhinitis, unspecified Category: Medical (3) NEAL on CPAP: Code(s): G47.33 - Obstructive sleep apnea (adult) (pediatric); Z99.89 - Dependence on other enabling machines and devices Category: Medical (4) Shortness of breath on exertion: Code(s): R06.02 - Shortness of breath Category: Medical Plan stop Flovent BID stop Bevespi BID start Breztri continue DuoNebs as needed continue CPAP therapy changed to APAP 6-12. continue p10 with chin strap. Needs climate tubing (heated tubing) CXR follow-up in 8 to 10 months Failed xmiguel a Daliresp Orders: Orders XR chest 2V 06/09/23 R06.02 - Shortness of breath Pneumococcal 20 Immunization 06/09/23 Z23 - Encounter for immunization Medications: New biziaczwzz-jlsqgmwi-opospostmf 160-9-4.8 mcg/actuation (Breztri Aerosphere) 2 inhalations inhalation BID 10.7 grams 11RF 30 days Coding Level of Care Code Est Pt Level 4 (72146) Diagnoses Severe persistent asthma with acute exacerbation J45.51 Asthma complication type: with acute exacerbation Asthma persistence: persistent Asthma severity: severe Chronic allergic rhinitis J30.9 NEAL on CPAP G47.33; Z99.89 Shortness of breath on exertion R06.02 Time Spent (min) 17
== END 2023-06-09 11:03 | disposition home or self-care (01) ==
PROVIDERS: PCP Pediatrics; Visit Provider Hospitalist
DX: J45.51 Severe persistent asthma with (acute) exacerbation (principal); J30.9 Allergic rhinitis, unspecified; G47.33 Obstructive sleep apnea (adult) (pediatric); Z99.89 Dependence on other enabling machines and devices; R06.02 Shortness of breath
CPT/HCPCS: 99214

== ENCOUNTER → 2023-06-09 10:36 | Outpatient (BNVA) | payer MEDICARE, MEDICAID, SELFPAY | PROVIDERS: PCP Pediatrics; Visit Provider Hospitalist | DX: J44.9 Chronic obstructive pulmonary disease, unspecified (principal); J45.51 Severe persistent asthma with (acute) exacerbation; J30.9 Allergic rhinitis, unspecified; G47.33 Obstructive sleep apnea (adult) (pediatric); R63.4 Abnormal weight loss; Z23 Encounter for immunization; Z99.89 Dependence on other enabling machines and devices | CPT/HCPCS: 90471; 90677; 99212 ==

== ENCOUNTER 2023-07-06 12:06 | Outpatient (REF) | payer MEDICARE, MEDICAID, SELFPAY ==
[2023-07-06 14:29] LABS: MANUAL DIFF FLAG NO
[2023-07-06 14:32] LABS: Basophils Percent Auto 0.6 % (0-2); Eosinophils Absolute Auto 0.1 X10*3/uL (0.0-0.4); Eosinophils Percent Auto 1.8 % (0-4); Hematocrit 43.2 % (37.0-47.0); Hemoglobin 13.8 g/dl (12.0-16.0); Imm Gran Abs Auto 0.01 X10*3/uL (0.00-0.03); Imm Gran Pct Auto 0.2 % (0.0-0.4); Lymphocytes Absolute Auto 1.6 X10*3/uL (1.2-4.9); Lymphocytes Percent Auto 24.2 % (20-40); Mean Corpuscular HGB Conc 31.9 g/dl (31.0-35.0); Mean Corpuscular Hemoglobin 30.1 pg (27.0-33.0); Mean Corpuscular Volume 94.1 fL (80.0-98.0); Mean Platelet Volume 10.1 fL (9.4-12.3); Monocytes Absolute Auto 0.3 X10*3/uL (0.1-1.2); Neutrophils Absolute Auto 4.5 x10*3/uL (2.0-8.3); Neutrophils Percent Auto 68.2 % (45-73); Platelet Count 212 X10*3/uL (160-400); Red Blood Count 4.59 X10*6/uL (4.20-5.50); Red Cell Distribution Width 13.3 % (11.0-16.0); White Blood Count 6.6 X10*3/uL (4.8-10.8)
[2023-07-06 14:44] LABS: Rheumatoid Factor < 13.0 IU/mL (<15.0)
[2023-07-06 15:11] LABS: Folate 9.1 ng/mL (> or = 4.0); Vitamin B12 420 pg/mL (200-900)
[2023-07-06 15:14] LABS: Alanine Aminotransferase 19 U/L (0-31); Albumin Level 4.2 g/dL (3.5-5.0); Alkaline Phosphatase 85 U/L (39-117); Aspartate Amino Transferase 13 U/L (5-31); Bilirubin Direct 0.2 mg/dL (0.0-0.5); Bilirubin Total 0.4 mg/dL (0.0-1.0); Cholesterol 159 mg/dL (<200); HDL Cholesterol 55 mg/dL (>40); LDL Cholesterol Calculated 85 mg/dL (<100); Total Protein 7.2 g/dL (6.5-8.0); Triglycerides 96 mg/dL (<150)
[2023-07-06 15:17] LABS: TSH reflex Free T4 1.88 uIU/mL (0.32-4.0)
[2023-07-06 15:32] LABS: Erythrocyte Sedimentation Rate 13 MM/HR (0-20)
== END 2023-07-06 12:07 | disposition home or self-care (01) ==
LOC: HO.CHCLDS 12:06
PROVIDERS: Visit Provider Pediatrics
DX: M25.541 Pain in joints of right hand (principal); M25.542 Pain in joints of left hand; N18.9 Chronic kidney disease, unspecified; E08.22 Diabetes mellitus due to underlying condition with diabetic chronic kidney disease
CPT/HCPCS: 36415; 80061; 80076; 82607; 82746; 84443; 85025; 85652; 86431

== ENCOUNTER 2023-08-18 10:13 | Outpatient (REF) | payer MEDICARE, MEDICAID, SELFPAY ==
--- NOTE | ~2023-08-18 | MM_ITS ---
EXAMINATION: MM SCREENING DIGITAL BREAST TOMOSYNTHESIS, BILATERAL CLINICAL INFORMATION: Screening. Asymptomatic. COMPARISON: Mammography: This study is compared with prior exams dating back to 2019. TECHNIQUE: Digital breast tomosynthesis is performed in both the craniocaudal and mediolateral oblique views along with computer-aided detection (CAD). Synthesized 2D images are generated from the tomosynthesis. FINDINGS: There are scattered areas of fibroglandular density (ACR BI-RADS breast composition Category b). There are no significant masses, abnormal calcifications, or other abnormalities. Scattered, bilateral benign calcifications are present. MM/MM tomosynthesis screening BI IMPRESSION: No mammographic evidence of malignancy. ASSESSMENT: BI-RADS BI-RADS 2 - Benign Findings RECOMMENDATION: Routine annual mammography screening. 1 year F/U This examination should not preclude the clinical evaluation of a suspicious palpable abnormality. This patient's information was entered into a reminder system with a target due date for their next mammogram.
== END 2023-08-18 10:14 | disposition home or self-care (01) ==
LOC: HO.MAMMO 10:13
PROVIDERS: PCP Pediatrics; Visit Provider Pediatrics
DX: Z12.31 Encounter for screening mammogram for malignant neoplasm of breast (principal)
CPT/HCPCS: 77063; 77067

== ENCOUNTER → 2023-08-18 10:30 | Outpatient (BNV) | payer MEDICARE, MEDICAID, SELFPAY | PROVIDERS: PCP Pediatrics; Visit Provider Radiology Diagnostic Radiology | DX: Z12.31 Encounter for screening mammogram for malignant neoplasm of breast (principal) | CPT/HCPCS: 77063; 77067 ==

== ENCOUNTER 2024-02-20 14:26 | Outpatient (AMB) | payer MEDICARE, MEDICAID, SELFPAY ==
[2024-02-20 14:33] VITALS: BP 160/80; PULSE 82; O2SAT 99; BMI 29.7
--- NOTE | 2024-02-20 14:33 | MHC.OFFVIS ---
Vital Signs 02/20/24 14:33 Height 5 ft 3 in Weight 167 lb 8.821 oz BMI 29.7 BP 160/80 H Blood Pressure Location Rt brachial Position Sitting Pulse 82 Pulse Source Pulse Oximeter Pulse Oximetry (%) 99 Oxygen Delivery Method Room Air Intake Visit Reasons: cough Allergies aspirin [Aspirin] Allergy (Intermediate, Verified 02/20/24 14:39) SWELLING ENVIROMENTAL Allergy (Severe, Uncoded 02/20/24 14:39) ASTHMA FLARE UP HPI Comments Details: The patient is a 62-year-old woman with a history of COPD and obstructive sleep apnea on CPAP therapy. The CPAP therapy continues to be affecting beneficial. She uses the CPAP for more than 4 hours a night. She was supposed to use oxygen supplementation along with her CPAP, but, she stopped using it and to see if she really needed or not. She does feel groggy in drowsy in the morning in her [place] score still elevated at 02/05. Her primary care doctor did find a murmur and she is scheduled to have a echocardiogram. There is also a question of pulmonary hypertension with limb swelling. I will follow up with the results of her ECHO. 02/01/2022 the patient is here for a pulmonary follow-up visit. She has been having hard time with her fibromyalgia is having significant amount of pain. She almost did not make it to the appointment. But, she has also been having difficulties with her CPAP in therefore she had to get that evaluated. She did bring it in. She feels that she is getting a lot of water in condensation in the tubing that is bothering her while she is sleeping. She is also having issues with a dry mouth. Probably asked why humidification was further increased. The machine is very old. She did bring it in. This is her 1st machine is probably around 7 or 8 years old. And appears to be in poor condition. Therefore, I do believe that a replacement machine is warranted at this time. She does have nasal pillows. She does not want to use a fullface mask even if her dryness in her mouth will improve. Therefore provided her with a different type of chinstrap I am hoping that this will not worsen little better. When she does use it her AHI is below 5. Her average pressure is 10 because the ient continues use her inhalers.machine is set up a CPAP of 10. Will change that to an APAP 6 to 12. I also decreased her she humidity from 8 to 3. I am also requesting the heated tubing to see if we can also improve her condensation with the temperature adjustment. From an asthma standpoint the patient If responding to the current respiratory regimen. Therefore will continue it at this time. 08/08/2022 the patient is here for pulmonary follow-up visit. Overall the patient is feeling better. The patient has asthma symptoms have improved specially with all significant weight loss that she has had. She continues her respiratory medicine. Has not required any prednisone which is reassuring. In addition to that she is using her CPAP. CPAP therapy continues to be affecting beneficial. She does try to use more than 4 hours a night. The patient did get a new CPAP and she is trying to get used to it. She feels like is too strong at times. I did download the machine since she brought in and her average pressure was 6 which is reassuring. Her AHI was actually 0. I do believe that she does not need high pressures for her Pap therapy. Therefore I switched her to a CPAP of 7 cm she can try that. If she feels like is too strong we can always many down to 6 cm. But I do believe that because the weight loss she does not need as much pressure settings. Ultimately if the patient feels starts feeling better altogether we can always consider repeating the sleep study in the future when she loses additional weight. 06/09/2023 the patient is here for a pulmonary follow-up visit. She has been struggling because of significant weight loss. The patient also has not been able to tolerate her CPAP pressures because now she does not feel like she needs such a high level. We had decrease it down to the lowest pressure during the last visit. She can bring it in during the next visit so we can further adjusted maybe we can bring it down further if possible. If the patient is still has a hard time tolerating her CPAP we can also consider repeating sleep study in case she no longer needs CPAP any longer. From an asthma standpoint she has been struggling. She did require a visit with our pulmonary office for a sick visit and she was given antibiotics and prednisone. She did feel better after that. She is now back at her baseline. Will continue to optimize her respiratory therapy at this time. She will be sw[facility] to [facility]. 02/20/2024 the patient is here for a pulmonary follow-up visit. The patient has had significant weight loss and now is having significant nausea. Likely related to Ozempic. The patient has not been able to use her CPAP because the pressures are too high specially since she is not significant amount of weight loss. She is going to have bring her machine in so we can adjust the pressures bringing down. She is having issue high blood pressure. Explained to her that untreated sleep apnea can result in uncontrolled high blood pressure. Therefore it will be important to go back on CPAP. In addition to that her snapper on did adjust her lisinopril to a higher dose. She has yet to parts picker the new prescription. [facility] Medical History Shortness of breath on exertion Chronic allergic rhinitis NEAL on CPAP Generalized abdominal pain Chronic idiopathic constipation Diabetes Allergic rhinitis Fibromyalgia GERD (gastroesophageal reflux disease) Diverticulosis HTN (hypertension) Depression Obesity Hypothyroidism Palpitations Asthma Surgical History Hx of breast surgery History of esophagogastroduodenoscopy (EGD) H/O tubal ligation H/O thyroidectomy History of surgery on arm H/O laminectomy History of Family History Maternal Aunt Cervical cancer Father Stomach cancer Diabetes HTN (hypertension) Mother Diabetes HTN (hypertension) Paternal Uncle Colon cancer Paternal Aunt Lung cancer Social History Household Members: None Housing: Apartment Are you a primary child care coordinator to a significant other at home: No Do you presently have visiting nurse or other home services: No Alcohol intake: never Patient Tobacco Use Status: Former Tobacco user Tobacco use type: Cigarette Years Smoked: 10 years Current occupational status: disabled Sexual orientation: Straight/Heterosexual Gender identity: Female Female Reproductive History Menstrual Age of Menarche: 13 Review of Systems Const Reports daytime sleepiness, Reports difficulty sleeping and Denies night sweats ENT Denies change in voice, Reports dysphagia, Denies lip swelling, Denies mouth pain, Reports nasal congestion, Reports nasal discharge, Reports neck pain and Denies tongue swelling Card Reports chest pain and Reports dyspnea on exertion Resp Reports cough, Reports dyspnea on exertion and Reports wheezing GI Reports abdominal pain, Reports dysphagia, Reports nausea and Reports vomiting Musc Reports back pain, Reports myalgias, Reports arthralgias, Reports joint swelling, Reports limited range of motion and Reports neck pain Neuro Denies Neuro-related abnormal movements Psych Denies no additional complaints Saul/Lymph Denies easy bleeding and Denies lymphadenopathy Aller/Immun Denies lip swelling, Denies tongue swelling and Reports wheezing Physical Exam Vital Signs: Last Vital Signs Pulse 82 02/20/24 14:33 BP 160/80 H 02/20/24 14:33 Pulse Ox 99 02/20/24 14:33 Oxygen Delivery Method Room Air 02/20/24 14:33 BMI result Body Mass Index 29.7 Const General: alert Neck Neck: Yes normal visual inspection, Yes full ROM and Yes no lymphadenopathy Chest Chest palpation & inspection: normal inspection of the chest Resp Auscultation: no wheezes and diminished lung sounds Cardio Rate: regular rate Rhythm: regular rhythm Heart sounds: S1 normal heart sound present and S2 normal heart sound present GI Palpation (GI): Soft to palpation and nontender Auscultation: normal bowel sounds Skin General skin exam: rashes and/or lesions noted Assessment & Plan Assessment & Plan (1) Asthma: Code(s): J45.909 - Unspecified asthma, uncomplicated Category: Medical Qualifiers: Asthma complication type: with acute exacerbation Asthma persistence: persistent Asthma severity: severe Qualified Code(s): J45.51 - Severe persistent asthma with (acute) exacerbation (2) Chronic allergic rhinitis: Code(s): J30.9 - Allergic rhinitis, unspecified Category: Medical (3) NEAL on CPAP: Code(s): G47.33 - Obstructive sleep apnea (adult) (pediatric); Z99.89 - Dependence on other enabling machines and devices Category: Medical (4) Shortness of breath on exertion: Code(s): R06.02 - Shortness of breath Category: Medical Plan Breztri continue DuoNebs as needed continue CPAP therapy changed to APAP 6-12, will bring it in to further adjust continue p10 with chin strap. Needs climate tubing (heated tubing) follow-up in 6 months Failed xolair, Daliresp Coding Level of Care Code Est Pt Level 4 (97442) Diagnoses Severe persistent asthma with acute exacerbation J45.51 Asthma complication type: with acute exacerbation Asthma persistence: persistent Asthma severity: severe Chronic allergic rhinitis J30.9 NEAL on CPAP G47.33; Z99.89 Shortness of breath on exertion R06.02 Time Spent (min) 16
== END 2024-02-20 14:55 | disposition home or self-care (01) ==
PROVIDERS: PCP Pediatrics; Visit Provider Hospitalist
DX: J45.51 Severe persistent asthma with (acute) exacerbation (principal); J30.9 Allergic rhinitis, unspecified; G47.33 Obstructive sleep apnea (adult) (pediatric); Z99.89 Dependence on other enabling machines and devices; R06.02 Shortness of breath
CPT/HCPCS: 99214

== ENCOUNTER → 2024-02-20 14:26 | Outpatient (BNVA) | payer MEDICARE, MEDICAID, SELFPAY | PROVIDERS: PCP Pediatrics; Visit Provider Hospitalist | DX: J45.51 Severe persistent asthma with (acute) exacerbation (principal); J30.9 Allergic rhinitis, unspecified; G47.33 Obstructive sleep apnea (adult) (pediatric); R06.02 Shortness of breath; Z99.89 Dependence on other enabling machines and devices | CPT/HCPCS: 99212 ==